=== PATIENT | female | born 1955 | race Caucasian/White ===

== ENCOUNTER → 2016-12-30 | Outpatient (CLI) | payer MEDICARE, OTHER ==
[~2016-12-30] MED LIST: ALPRAZOLAM PO; ALPRAZOLAM0.5 MG PO; AMLODIPINE BESY10 MG PO; AMOXICILLIN PO; ASACOL400 MG PO; ASPIRIN81 M1 PO; ASPIRIN81 MG PO; ATARAX PO; BACLOFEN20 M1 PO; BACLOFEN20 MG PO; CAPOZIDE PO; CLEOCIN HCL300 M1 PO; DESYREL100 MG PO; DICYCLOMINE HCL20 MG; ECOTRIN81 M1 PO; ENDOCET 10-3251 TAB PO; FLEXERIL10 MG PO; IBUPROFEN800 MG PO; LORTAB 10-5001 EACH PO; MEDROL PO; MEDROL4 MG/DOSE- PO; METHADONE PO; MUCINEX DM1 TAB.SR . PO; MUCUS RELIEF600 MG; NEURONTIN PO; NEURONTIN300 MG PO; NEURONTIN800 MG PO; NORVASC PO; OMEPRAZOLE40 MG PO; OXYCODON HCL-1 UDTAB PO; PAXIL PO; PHENERGAN PO; PRAVASTATIN SOD40 MG PO; PRENATAL1 TA1 PO; PRILOSEC PO; PROAIR HFA8.5 GM; RISPERDAL0.5 MG PO; SARAFEM20 MG PO; TIZANIDINE HCL4 M1 PO; TOPAMAX PO; TRAZODONE PO; ZANAFLEX PO; ZOLOFT PO; ZYRTEC10 M2 PO; [UNRECOGNIZED DRUG - OTHER]; [UNRECOGNIZED DRUG - OTHER]
--- NOTE | ~2016-12-30 | US17 ---
[facility] of [facility] RADIOLOGY TEXT RESULTS PATIENT: GEOVANNA SANTAMARIA LOCATION: [facility] : 57 UNIT #: [id number] AGE: [address]: VIKI ZARAGOZA APRN SEX: F ORDER DR: [id number] [facility] [address] [place], [place] [address] [id number] O MR#: [id number] #: [id number] NAME: GEOVANNA JIMÉNEZ : 1955 SEX: F STUDY DATE/TIME: 12/30/2016 13:10 UNIT: [facility] ROOM: STUDY DESCRIPTION: US Breast Bilateral Attending Physician: Viki Zaragoza Aprn Referring Physician: Viki Zaragoza Aprn Ordering Physician: Viki Zaragoza Aprn Primary Care Physician: Viki Zaragoza Aprn MEDICAL IMAGING REPORT This report is preliminary unless electronic signature is present EXAM Bilateral breast ultrasound 12/30 INDICATIONS 61 year old presents for bilateral breast ultrasound with evaluation of the implants. Patient gives a strong family history of breast cancer. FINDINGS Sonographic evaluation is performed of both breasts. Please note, the patient declined mammography today. Exam demonstrates minimal amount of [place] breast tissue. The overlying skin is normal. Bilateral saline breast implants are present. There are areas of capsular thickening in the left breast. Exam is otherwise unremarkable. IMPRESSION Grossly normal exam. Ultrasound is not in the standard of care for screen for breast cancer. Consider further evaluation with bilateral breast MRI if further imaging of the implants is needed. Mammogram could potentially be obtained as well. The results and recommendations were discussed with the patient at the time of her examination today. BIRADS: 2 Benign Finding. Dictated by... Faisal Joy Jr., M.D. THIS IS AN ELECTRONICALLY VERIFIED REPORT Faisal Joy Jr., M.D. at 01/02/2017 5:52 AM [facility]pcl [facility] of [facility] RADIOLOGY TEXT RESULTS PATIENT: GEOVANNA SANTAMARIA LOCATION: [facility] : 57 UNIT #: [id number] AGE: [address]: VIKI ZARAGOZA APRN SEX: F ORDER DR: TD: 12/30/2016 19:31 JOB #: [id number] MEDICAL IMAGING REPORT Page 1 of 1 COPY
== END | disposition home or self-care (01) ==
LOC: CWCC 12:45
DX: Z03.89 Encounter for observation for other suspected diseases and conditions ruled out (principal); Z98.82 Breast implant status; Z87.898 Personal history of other specified conditions
CPT/HCPCS: 76641